=== PATIENT | female | born 1955 | race Caucasian/White ===

== ENCOUNTER 2022-07-23 14:56 | Outpatient (CLI) | payer MEDICARE, OTHER | END 2022-07-23 14:57 | disposition home or self-care (01) | LOC: CSHRAD 14:56 | PROVIDERS: ATTEND Family Medicine | DX: M54.2 Cervicalgia (principal); Q75.9 Congenital malformation of skull and face bones, unspecified; M47.812 Spondylosis without myelopathy or radiculopathy, cervical region | CPT/HCPCS: 70260; 72040 ==

== ENCOUNTER 2025-05-22 09:50 | Outpatient (CLI) | payer MEDICARE, OTHER | END 2025-05-22 09:51 | disposition home or self-care (01) | LOC: CSHCT 09:50 | PROVIDERS: ATTEND Family Medicine | DX: M54.2 Cervicalgia (principal); R41.0 Disorientation, unspecified; M47.812 Spondylosis without myelopathy or radiculopathy, cervical region | CPT/HCPCS: 70450; 72040 ==